=== PATIENT | male | born 1990 | race Caucasian/White ===

== ENCOUNTER 2018-05-11 15:48 | Emergency (ER) | payer SELFPAY ==
[2018-05-11 15:56] VITALS: BP 118/73
--- NOTE | 2018-05-11 19:13 | Emergency Department Report ---
Chief Complaint: Urogenital-Male Stated Complaint: STD EXPOSURE Time Seen by Provider: 05/11/18 18:53 - HPI History of Present Illness: This is a 27-year-old male nontoxic, well nourished in appearance, no acute signs of distress presents to the ED for STD check up. Patient denies any testicular pain or swelling. Patient denies any penile discharge. Patient stated girlfriend has STD and wants to be tested. Patient denies any penile ulcers or lesions. Patient denies any nausea, vomiting, chest pain, shortness of breathe, fever, chills, headache, back pain, numbness, tingling, stiff neck. Patient denies any urinary symptoms. Patient denies any allergies or PMH. - Exam Vital Signs: Vital Signs 05/11/18 15:53 Temperature 98.3 F Pulse Rate 64 Respiratory 18 Rate Blood Pressure 118/73 O2 Sat by Pulse 100 Oximetry Physical Exam: GENERAL: The patient is a well-developed, well-nourished in no apparent distress. Patient is alert and acting appropriately for age. Alert and oriented 3, no apparent distress, normal gait, atraumatic. LUNGS: Clear to auscultation. Non labor breathing. No intercostal retractions. Symmetrical with respiration, no wheezing, no rales, or crackles. HEART: Regular rate and rhythm without murmur, rubs or gallops. No reproducible. S1, S2 present, regular rate and rhythm without murmur, no rubs, no gallops. ABDOMEN: Soft, nontender, and nondistended. Positive bowel sounds. No hepatosplenomegaly was noted. No guarding or rebound tenderness, negative epigastric bruit. Negative psoas sign, negative townsend sign, negative McBurneys sign MSE screening note: Focused history and physical exam performed. Due to findings the following was ordered: ED Medical Decision Making - Medical Decision Making This is a 27-year-old male that presents with nonmedical emergency. Patient is stable and was examined by me. Patient is asymptomatic and denies any symptoms. Patient states he just wants to be tested for STD. [employer] has approached patient for a co-pay but patient refused. I will refer the patient [facility]. At time of discharge, the patient does not seem toxic or ill in appearance. No acute signs of distress noted. Patient agrees to discharge treatment plan of care. No further questions noted by the patient. ED Disposition for MSE Clinical Impression: Possible exposure to STD Disposition: MED SCREENING EXAM-LEFT Is pt being admited?: No Condition: Stable Instructions: Safe Sex (ED) Additional Instructions: Follow-up with a primary care doctor in 3-5 days or if symptoms worsen and continue return to emergency room as soon as possible. Referrals: PRIMARY CAREMD [Primary Care Provider] - 3-5 Days SUSHMA HOOPER MD [Staff Physician] - 3-5 Days [facility] [Outside] - 3-5 Days [facility] [Outside] - 3-5 Days
== END 2018-05-11 19:24 | disposition left against medical advice (07) ==
LOC: ED 15:48
DX: Z20.2 Contact with and (suspected) exposure to infections with a predominantly sexual mode of transmission (principal)
CPT/HCPCS: 99281

== ENCOUNTER 2018-08-05 12:43 | Emergency (ER) | payer SELFPAY ==
--- NOTE | 2018-08-05 13:50 | XRay Report ---
RIGHT HAND RADIOGRAPHS INDICATION: Pain and swelling. COMPARISON: None similar at this institution. FINDINGS: AP, lateral and oblique right hand radiographs demonstrate fourth metacarpal mid shaft fracture with cortical offset of approximately 3-4 mm on the oblique and lateral views, though appearing aligned on the frontal projection with mild surrounding callus formation. No joint involvement. Normal remainder exam. CONCLUSION: Right fourth metacarpal mid shaft subacute fracture with some adjacent callus formation, as described. Please correlate. Thank you for the opportunity to participate in this patient's care.
--- NOTE | 2018-08-05 14:47 | Emergency Department Report ---
Upper Extremity - HPI Chief Complaint: Extremity Injury, Upper Stated Complaint: FRACTURED HAND/SPRAINED Time Seen by Provider: 08/05/18 14:24 Upper Extremity: Right Hand (swelling, pain improved just from injury) Occurred When: >5 Days (3 weeks) Mechanism: Hit with Object (medical pole) Severity: severe (9/10. Achy/sharp) Symptoms: Yes Pain with Movement, Yes Limited Range of Movement (right hand), Yes Swelling (right hand), Yes Bruising/Ecchymosis (right hand), No Deformity, No Numbness, No Weakness Other History: This is a 27-year-old male who reports that he has right hand pain and swelling 3 weeks. He said he accidentally hit a metal pole. He said initially there was some swelling but over time the swelling got worse and now it is bruised and pain is 9/10 achy and sharp. Pain is worse with movement. He said he took [id number] ibuprofen without any relief. No alleviating factors. Denies any other complaints or injury. ED Review of Systems ROS: Stated complaint: FRACTURED HAND/SPRAINED Other details as noted in HPI Constitutional: denies: chills, fever Eyes: denies: vision change ENT: denies: ear pain, throat pain Respiratory: denies: cough, shortness of breath, SOB with exertion, SOB at rest , wheezing Cardiovascular: denies: chest pain, palpitations, edema, syncope Gastrointestinal: denies: nausea, vomiting Musculoskeletal: joint swelling, arthralgia. denies: back pain, myalgia Skin: other (bruising right hand). denies: rash, lesions Neurological: denies: headache, weakness, numbness, paresthesias, confusion, abnormal gait, vertigo ED Past Medical Hx - Past Medical History Previous Medical History?: No - Surgical History Past Surgical History?: No - Family History Family history: no significant - Social History Smoking Status: Current Every Day Smoker Substance Use Type: None - Medications Home Medications: Home Medications Medication Instructions Recorded Confirmed Last Taken Type Acetaminophen/Codeine [Tylenol #3] 1 tab PO Q6H PRN #10 tab 07/10/15 Unknown Rx Sulfamethoxazole/Trimethoprim 1 each PO Q12H #14 tablet 07/10/15 Unknown Rx [Bactrim DS TAB] HYDROcodone/ACETAMINOPHEN [Carrie 1 each PO Q6H PRN #12 tablet 08/05/18 Unknown Rx 5-325 Tablet] Ibuprofen [Motrin 600 MG tab] 600 mg PO Q8H PRN #15 tablet 08/05/18 Unknown Rx Upper Extremity Exam - Exam General: Vital signs noted. No distress. Alert and acting appropriately. This is a 27-year-old male well-nourished well-developed in no acute distress. Head and Torso: No HEENT Abnormality, No Neck Tenderness, No Chest/Lungs Abnormality, No Abdominal Tenderness, No Back Tenderness Shoulder Exam: Yes Normal Range of Motion in Shoulder, No Shoulder Tenderness, No Clavicle Tenderness, No Shoulder Deformity, No AC Joint Tenderness Arm Exam: No Arm/Humerus Tenderness, No Arm Deformity Elbow: Yes Normal Range of Motion in Elbow, No Elbow Tenderness, No Elbow Deformity Forearm: No Forearm Tenderness, No Forearm Deformity, No Pain with Pronation, No Pain with Supination Wrist: Yes Normal ROM in Wrist, No Wrist Tenderness, No Wrist Deformity, No Snuffbox Tenderness, No Pain with Axial Thumb Compression Hand: Yes Hand Tenderness (dorsal aspect right hand, third, fourth and fifth metacarpal bone area.), Yes Normal ROM in Digit(s) (pt has full range of motion but he has pain with opening and closing his right hand. Pain with movement of right hand.), No Hand Deformity, No Digit Tenderness, No Digit(s) Deformity, No Tendon Dysfunction CMS Exam: Yes Normal Distal Pulses (radial and ulnar pulses that are +2 and vomited), Yes Normal Capillary Refill (capillary refill less than 3 seconds), Yes Normal Distal Sensation (patient with ecchymotic area to right dorsal aspect of hand at the third fourth and fifth metacarpal bone area.), No Broken Skin Hand L/R Back: 1 - Patient with bruising and swelling and tenderness to palpate at the right third fourth and fifth metacarpal bone area. He is able to move his fingers of his right hand without any difficulties and able to use his thumb to touch all his fingers of right hand. ED Course Vital Signs 08/05/18 12:53 Temperature 98.2 F Pulse Rate 68 Respiratory 18 Rate Blood Pressure 105/50 O2 Sat by Pulse 99 Oximetry - Reevaluation(s) Reevaluation #1: 08/05/18 15:31 Patient given Motrin 800 mg and Carrie 5/325 2 tablets by mouth in emergency room. Splinting in progress. - Orthopedic Splinting/Casting Injury #1 Side: right Upper Extremity Injury Location: hand Upper Extremity Immobilizer: sling/shoulder immobilize, ulnar gutter Additional Comments: Patient with good color, sensation and temperature, movement to right hand status post splint. He is able to move his fingers without difficulties and capillary refill is less than 3 seconds. ED Medical Decision Making - Radiology Data Radiology results: report reviewed X-ray of right hand 3 views stated by radiologist and report reviewed by myself. Injury is 3 weeks old and patient with fourth metacarpal bone fracture that is subacute with callus formation. Patient: MARCOS ORDAZ MR#: [id number] : 1990 Acct:[id number] Age/Sex: 27 / M ADM Date: 08/05/18 Loc: ED Attending Dr: Ordering Physician: MIREYA ASHFORD MD Date of Service: 08/05/18 Procedure(s): XR hand 3+V RT Accession Number(s): [id number] cc: ED MD DEJON Fluoro Time In Minutes: RIGHT HAND RADIOGRAPHS INDICATION: Pain and swelling. COMPARISON: None similar at this institution. FINDINGS: AP, lateral and oblique right hand radiographs demonstrate fourth metacarpal mid shaft fracture with cortical offset of approximately 3-4 mm on the oblique and lateral views, though appearing aligned on the frontal projection with mild surrounding callus formation. No joint involvement. Normal remainder exam. CONCLUSION: Right fourth metacarpal mid shaft subacute fracture with some adjacent callus formation, as described. Please correlate. Thank you for the opportunity to participate in this patient's care. Transcribed By: RS Dictated By: HAM ADAM MD Electronically Authenticated By: HAM ADAM MD Signed Date/Time: 08/05/18 134 DD/ 1345 TD/TT: 08/05/18 1347 - Medical Decision Making This is a 27-year-old male here report that he injured his right hand by accident and punching a pole 3 weeks ago and now he is having swelling, bruising and pain that increased in over 3 weeks. Diagnostics: X-ray right hand 3 views reveals fourth metacarpal bone fracture that is supple sub that acute. Patient had incident 3 weeks ago. Assessment/plan 1:Fracture right hand fourth metacarpal bone secondary to [id number] verified that patient with subacute fracture of right hand and patient verify that he fractured his right hand for 3 weeks ago-patient to follow-up with orthopedic doctor 2:Arthralgia right hand-patient given Motrin 800 mg by mouth and Carrie 5/325 mg 2 tablets by mouth which relieved his pain and will be discharged home on Motrin and Carrie. Procedure: Right ulnar gutter splint placed. Patient with right upper extremity sling. Patient with good neurovascular check after splint place. I discussed the patient is diagnosis, treatment plan x-ray report, per seizure and medication and need to follow up in the voice understanding.Rice therapy and splint care explained and he voiced understanding. Patient discharged home in stable condition to follow up with orthopedic doctor in 3 days. I discussed with him that his x-ray shows that the fracture is subacute and he verifies that he fractured his then 3 weeks ago. I also discussed with him that due to delay treatment he can have chronic pain from nerve injury and also arthritis and he voiced understanding. Patient discharged home in stable condition, vital signs stable for eyebrow and pain is down to 2 out of 10. Discharge home with prescription for Motrin and Carrie. - Differential Diagnosis FX vs dislocation, contusion, musculoskeletal pain Critical care attestation.: If time is entered above; I have spent that time in minutes in the direct care of this critically ill patient, excluding procedure time. ED Disposition Clinical Impression: Arthralgia of hand, right Hand fracture, right Qualifiers: Encounter type: initial encounter Fracture type: closed Qualified Code(s): S62.91XA - Unspecified fracture of right wrist and hand, initial encounter for closed fracture Disposition: DC-01 TO HOME OR SELFCARE Is pt being admited?: No Does the pt Need Aspirin: No Condition: Stable Instructions: Hand Fracture (ED), Splint Care (ED), Arthralgia (ED), RICE Therapy (ED) Additional Instructions: Follow-up with orthopedic doctor in 3 days for management of right hand fracture that has been ongoing for 3 weeks. Discharge instruction on splint care and Rice therapy Take Carrie for severe pain and please do not drive or operate heavy machinery while taking this medication as it causes drowsiness Take Motrin for mild to moderate pain and take this medication with food. Symptoms worsen, return to the emergency room ELVIE. Referrals: PRIMARY CARE, [Primary Care Provider] - 3-5 Days [facility] [Outside] - 3-5 Days JAYDEN BILLINGSLEY MD [Staff Physician] - 08/08/18 Forms: Work/School Release Form(ED)
[2018-08-05] MEDS ORDERED: NORCO 5/325 PO ONE (15:22)
[2018-08-05] MEDS ORDERED: MOTRIN PO ONE (15:22)
[2018-08-05 16:22] VITALS: BP 106/54
== END 2018-08-05 16:20 | disposition home or self-care (01) ==
LOC: ED 12:43
DX: S62.91XA Unspecified fracture of right hand, initial encounter for closed fracture (principal); F17.200 Nicotine dependence, unspecified, uncomplicated; W22.8XXA Striking against or struck by other objects, initial encounter; Y93.89 Activity, other specified; Y99.8 Other external cause status; Y92.89 Other specified places as the place of occurrence of the external cause

== ENCOUNTER 2018-08-27 20:41 | Emergency (ER) | payer SELFPAY ==
[2018-08-27 20:53] VITALS: BP 119/40
--- NOTE | 2018-08-27 21:41 | XRay Report ---
FINAL REPORT EXAM: XR HAND 3+V RT HISTORY: right hand injury TECHNIQUE: Frontal, lateral, oblique views right hand Comparison: None FINDINGS: There is a nonacute angulated and displaced fracture of the midshaft of the 4th metacarpal with evidence of some callus formation. There is no other evidence of fracture and no evidence of subluxation. The soft tissues are unremarkable. There is no evidence of radiopaque foreign body. IMPRESSION: 1. Nonacute angulated and displaced fracture mid shaft 4th metacarpal with some callus formation. 2. No plain film evidence of radiopaque foreign body. However, not foreign bodies are radiopaque.
[2018-08-28] MEDS ORDERED: ULTRAM PO ONE (02:07)
--- NOTE | 2018-08-28 02:14 | Emergency Department Report ---
ED Upper Extremity Inj HPI - General Chief Complaint: Extremity Injury, Upper Stated Complaint: FOREIGN OBJECT RT HAND/5TH DIGIT Time Seen by Provider: 08/28/18 02:07 Source: patient Mode of arrival: Stretcher Limitations: No Limitations - History of Present Illness Initial Comments: elena lai right pinky finger versus wood splinter, complains of 4/10 pain states he fell and hit hand on 2x4 causing splinter to finger. Complaint: Injury to:: right, hand, finger Other Extremity Injury: Fingers: Right (right pinky ) Handedness: right Place: home Severity scale (0 -10): 4 Improves With: none Worsens With: none Context: fall Associated Symptoms: denies other symptoms - Related Data Previous Rx's Medication Instructions Recorded Last Taken Type Acetaminophen/Codeine [Tylenol #3] 1 tab PO Q6H PRN #10 tab 07/10/15 Unknown Rx Sulfamethoxazole/Trimethoprim 1 each PO Q12H #14 tablet 07/10/15 Unknown Rx [Bactrim DS TAB] HYDROcodone/ACETAMINOPHEN [[place] 1 each PO Q6H PRN #12 tablet 08/05/18 Unknown Rx 5-325 Tablet] Ibuprofen [Motrin 600 MG tab] 600 mg PO Q8H PRN #15 tablet 08/05/18 Unknown Rx Ibuprofen 800 mg PO TID PRN #30 tablet 08/28/18 Unknown Rx Allergies Allergy/AdvReac Type Severity Reaction Status Date / Time No Known Allergies Allergy Verified 08/05/18 13:00 ED Review of Systems ROS: Stated complaint: FOREIGN OBJECT RT HAND/5TH DIGIT Other details as noted in HPI Constitutional: denies: chills, fever Eyes: denies: eye pain, eye discharge, vision change ENT: denies: ear pain, throat pain Respiratory: denies: cough, shortness of breath, wheezing Cardiovascular: denies: chest pain, palpitations Endocrine: no symptoms reported Gastrointestinal: denies: abdominal pain, nausea, diarrhea Genitourinary: denies: urgency, dysuria Musculoskeletal: other (splinter right pinky ) Skin: other (splinter as above ). denies: rash, lesions Neurological: denies: headache, weakness, paresthesias Psychiatric: denies: anxiety, depression Hematological/Lymphatic: denies: easy bleeding, easy bruising ED Past Medical Hx - Past Medical History Previous Medical History?: No - Surgical History Past Surgical History?: No - Social History Smoking Status: Current Every Day Smoker Substance Use Type: Alcohol - Medications Home Medications: Home Medications Medication Instructions Recorded Confirmed Last Taken Type Acetaminophen/Codeine [Tylenol #3] 1 tab PO Q6H PRN #10 tab 07/10/15 Unknown Rx Sulfamethoxazole/Trimethoprim 1 each PO Q12H #14 tablet 07/10/15 Unknown Rx [Bactrim DS TAB] HYDROcodone/ACETAMINOPHEN [[place] 1 each PO Q6H PRN #12 tablet 08/05/18 Unknown Rx 5-325 Tablet] Ibuprofen [Motrin 600 MG tab] 600 mg PO Q8H PRN #15 tablet 08/05/18 Unknown Rx Ibuprofen 800 mg PO TID PRN #30 tablet 08/28/18 Unknown Rx ED Physical Exam - General Limitations: No Limitations General appearance: alert, in no apparent distress - Head Head exam: Present: atraumatic, normocephalic - Eye Eye exam: Present: normal appearance - ENT ENT exam: Present: mucous membranes moist - Neck Neck exam: Present: normal inspection - Respiratory Respiratory exam: Present: normal lung sounds bilaterally. Absent: respiratory distress - Cardiovascular Cardiovascular Exam: Present: regular rate, normal rhythm. Absent: systolic murmur, diastolic murmur, rubs, gallop - GI/Abdominal GI/Abdominal exam: Present: soft, normal bowel sounds - Rectal Rectal exam: Present: deferred - Extremities Exam Extremities exam: Present: normal inspection, tenderness - Expanded Upper Extremity Exam Right Hand Wrist exam: Present: other (splinter right pinky ) Neuro motor exam: Present: wrist extension intact, thumb opposition intact, thumb IP flexion intact, thumb adduction intact, fingers 2-5 abduction intact Neurosensory exam: Present: 2-point discrimination, radial nerve intact, ulnar nerve intact, median nerve intact Vascular: Absent: vascular compromise - Back Exam Back exam: Present: normal inspection - Neurological Exam Neurological exam: Present: alert, oriented X3 - Psychiatric Psychiatric exam: Present: normal affect, normal mood - Skin Skin exam: Present: warm, dry, intact, normal color. Absent: rash ED Course Vital Signs 08/27/18 08/27/18 20:48 20:49 Temperature 98.3 F 98.3 F Pulse Rate 84 84 Respiratory 18 17 Rate Blood Pressure 117/38 119/40 O2 Sat by Pulse 100 99 Oximetry ED Medical Decision Making - Medical Decision Making pt refuses digital block and soft tissue exploration will referr to general surgery , distal pulses intact rom intact flexion extension adduction abduction intact , pt verbalized agreement and understanding of discharge plan. Critical care attestation.: If time is entered above; I have spent that time in minutes in the direct care of this critically ill patient, excluding procedure time. ED Disposition Clinical Impression: Foreign body of finger of left hand Qualifiers: Encounter type: initial encounter Qualified Code(s): S60.459A - Superficial foreign body of unspecified finger, initial encounter Disposition: DC- TO HOME OR SELFCARE Is pt being admited?: No Does the pt Need Aspirin: No Condition: Stable Instructions: Soft Tissue Foreign Body (ED) Prescriptions: Ibuprofen 800 mg PO TID PRN #30 tablet PRN Reason: pain Referrals: JACK FERGUSON DO [Staff Physician] - 3-5 Days Forms: Work/School Release Form(ED) Time of Disposition: 02:11
== END 2018-08-28 02:21 | disposition home or self-care (01) ==
LOC: ED 20:41
DX: S60.459A Superficial foreign body of unspecified finger, initial encounter (principal); F17.200 Nicotine dependence, unspecified, uncomplicated; W20.8XXA Other cause of strike by thrown, projected or falling object, initial encounter; Y93.89 Activity, other specified; Y99.8 Other external cause status; Y92.019 Unspecified place in single-family (private) house as the place of occurrence of the external cause
CPT/HCPCS: 99283